=== PATIENT | female | born 1955 | race Caucasian/White ===

== ENCOUNTER 2019-07-09 16:09 | Inpatient (IN) ==
[2019-07-09] MEDS ORDERED: ASPIRIN PO ONE (16:15)
[2019-07-09 16:48] LABS: BLOOD TYPE ARTERIAL; HCO3-(ACT) 26.9 mmoll (20.0-26.0); METHB 1.8 % (0.0-1.5); O2(CT) 20.5 mL/dL (15.0-23.0); PCO2(98.6) 34 mmHg (35-45); PO2(98.6) 55 mmHg (60-100); SAMPLE BLOOD; THB 16.8 g/dL (11.5-17.4); pH(98.6) 7.49 (7.35-7.45)
[2019-07-09] MEDS ORDERED: ALBUTEROL NEB INH ONE (16:48)
[2019-07-09] MEDS ORDERED: PULMICORT INH ONE (16:48)
[2019-07-09] MEDS ORDERED: SOLU-MEDROL IV ONE (16:48)
[2019-07-09] MEDS ORDERED: DUONEB (A & A) INH ONE (16:48)
[2019-07-09 16:54] LABS: ALLEN TEST YES; MODALITY CANNULA
[2019-07-09] MEDS ORDERED: DILAUDID IV ONE (16:55)
[2019-07-09 17:11] LABS: INR 1.93; PTT 40.3 Seconds (22.3-41.8)
[2019-07-09 17:14] LABS: BASO# 0.02 X1000 (0.0-0.2); BASO% 0.1 % (0.0-0.8); EOS# 0.01 X1000 (0.0-0.7); HEMATOCRIT 46.2 % (37.0-47.0); HEMOGLOBIN 15.2 g/dL (12.0-16.0); IMM GRAN% 0.4 % (0.0-0.5); LYMPH# 1.86 X1000 (1.2-3.4); LYMPH% 7.3 % (20.5-51.1); MCHC 32.9 g/dL (33-37); MCV 94.1 FL (81-99); MONO# 1.89 X1000 (0.11-0.59); MONO% 7.4 % (1.7-9.3); MPV 10.6 FL (7.4-10.4); NEUT# 21.75 X1000 (1.4-6.5); NEUT% 84.8 % (42.2-75.2); PLT 454 X1000 (130-400); RBC 4.91 XMIL (4.2-5.4); RDW 13.4 % (11.5-14.5); WBC 25.63 X1000 (4.8-10.8)
--- NOTE | 2019-07-09 17:26 | EKG Report ---
Test Performed on : 07/09/2019 4:18:43 PM Test Reason : sob chf copd Blood Pressure : / mmHG Vent. Rate : 105 BPM Atrial Rate : 105 BPM P-R Int : 208 ms QRS Dur : 086 ms QT Int : 366 ms P-R-T Axes : 064 025 037 degrees QTc Int : 483 ms Sinus tachycardia. with premature supraventricular complexes. Possible Left atrial enlargement ST & T wave abnormality, consider anterior ischemia Abnormal ECG When compared with ECG of 15-JUL-2015 16:14, premature supraventricular complexes. are now present MN interval has decreased Unconfirmed Result
--- NOTE | 2019-07-09 17:28 | Diag Imaging Result Doc PS360 ---
CHEST-2 VIEWS - 07/09/2019 INDICATION: sob chf COMPARISON: 09/30/2016 FINDINGS: Stable sternotomy wires. Heart size and pulmonary vascularity is normal. The lungs are clear. Heart size is normal. No pneumothorax or pleural effusion. IMPRESSION: Negative exam. Electronically signed by Carlos Sabillon 07/09/2019 5:26 PM
[2019-07-09 17:33] LABS: ALBUMIN 4.1 g/dL (3.5-5.0); CALCIUM 10.4 mg/dL (8.8-10.2); CREATININE 1.1 mg/dL (0.5-0.9); POTASSIUM 3.2 mmol/L (3.5-5.1); TOTAL BILIRUBIN 0.3 mg/dL (0.20-1.00)
[2019-07-09] MEDS ORDERED: POTASSIUM CHLORIDE 20% LIQUID PO ONE (17:34)
[2019-07-09] MEDS ORDERED: ZOFRAN IV PRN (18:25)
[2019-07-09] MEDS ORDERED: DUONEB (A & A) INH PRN (18:29)
--- NOTE | 2019-07-09 18:30 | PROVIDER DOCUMENTATION ---
This chart was entered by Nahum Mesa Scribe, acting as scribe for Raudel Hankins MD. HPI-Respiratory General - General Chief Complaint: Shortness of Breath Stated Complaint: difficulting breathing Time Seen by Provider: 07/09/19 16:45 Source: patient Allergies/Adverse Reactions: Patient Allergies Allergy/AdvReac Type Severity Reaction Status Date / Time morphine AdvReac RASH Verified 09/30/16 12:19 Home Medications: Home Medication List Medication Instructions Recorded Confirmed Last Taken Type ATORVAstatin [Lipitor] 20 mg PO DAILY 07/15/15 02/12/16 02/11/16 History Amiodarone [Cordarone] 200 mg PO DAILY 07/15/15 02/12/16 02/11/16 History Amitriptyline [Elavil] 100 mg PO HS 07/15/15 02/12/16 02/11/16 History Amlodipine [Norvasc] 5 mg PO DAILY 07/15/15 02/12/16 02/11/16 History Aspirin 81 mg PO DAILY 07/15/15 02/12/16 02/11/16 History Buspirone [Buspar] 10 mg PO BID 07/15/15 02/12/16 02/11/16 History Esomeprazole [Nexium] 40 mg PO DAILY 07/15/15 02/12/16 1 Day Ago History ~02/11/16 Eszopiclone [Lunesta] 3 mg PO HS 07/15/15 02/12/16 02/11/16 History Hydrocodone/Acetaminophen [[place] 1 each PO Q4HR 07/15/15 02/12/16 02/12/16 History 5-325 Tablet] Metoprolol Tartrate 25 mg PO BID 07/15/15 02/12/16 1 Day Ago History ~02/11/16 Polyethylene Glycol 3350 [Miralax] 17 gm PO DAILY 07/15/15 02/12/16 02/08/16 History Promethazine [Phenergan] 25 mg [place] Q6H PRN PRN 07/15/15 02/12/16 02/09/16 History Albuterol Sulfate [Proair Hfa] 1 puff INH PRN PRN 11/27/15 02/12/16 02/12/16 History Albuterol [Albuterol Neb] 5 mg INH Q4H PRN PRN #60 neb 11/27/15 02/12/16 Unknown Rx Budesonide/Formoterol Fumarate 1 ahfu INH DAILY 11/27/15 02/12/16 02/11/16 History [Symbicort 160-4.5 Mcg Inhaler] Furosemide [Lasix] 20 mg PO DIRECTED 11/27/15 02/12/16 1 Day Ago History ~02/11/16 Pregabalin [Lyrica] 100 mg PO HS 11/27/15 02/12/16 02/11/16 History Warfarin [Coumadin] 2.5 mg PO DIRECTED 11/27/15 02/12/16 02/11/16 History Modafinil [Provigil] 200 mg PO DAILY 02/12/16 02/12/16 02/11/16 History Omeprazole [Prilosec] 40 mg PO 02/12/16 02/12/16 02/11/16 History Clonazepam [Klonopin] 0.5 mg PO Q6H PRN PRN #20 tablet 02/15/16 Unknown Rx Levofloxacin [Levaquin] 500 mg PO DAILY #10 tablet 02/15/16 Unknown Rx Prednisone 20 mg PO DAILY #5 tablet 02/15/16 Unknown Rx Furosemide [Lasix] 40 mg PO DAILY #30 tablet 02/23/16 Unknown Rx - History of Present Illness-Resp Nature of Presenting Problem: Pt is a 63 yof who presents to the ED via EMS with a CC of shortness of breath. Pt states she was at [facility] last night. Pt reports being short of breath for two days. Pt reports having chills and a sinus infection. Pt reports a hx of frequent UTIs, stomach ulcers, HTN, and COPD. Pt reports being a 1/2 ppd smoker. Quality of Pain: reports: other (See HPI) Severity in ED: reports: mild Onset/Duration: reports: 2 days ago Timing: reports: still present Episode Frequency: occasional episodes Current Respiratory Medication Therapy: Initiated see nurses note Associated Symptoms: reports: fever/chills (Chills), nasal congestion, nasal drainage, shortness of breath, wheezing Similar Symptoms Previously?: Yes Recently seen or treated by another doctor?: Yes Review of Systems - Adult - REVIEW OF SYSTEMS - ADULT Constitutional: reports: see HPI, chills Eyes: reports: no symptoms reported Ears, Nose, Mouth & Throat: reports: see HPI, sinus problem Cardiovascular: reports: no symptoms reported Respiratory: reports: see HPI, shortness of breath Gastrointestinal: reports: no symptoms reported Genitourinary: reports: no symptoms reported Musculoskeletal: reports: no symptoms reported Integumentary: reports: no symptoms reported Neurological: reports: no symptoms reported Psychiatric: reports: no symptoms reported Endocrine: reports: no symptoms reported Hematologic/Lymphatic: reports: no symptoms reported Allergic/Immunologic: reports: no symptoms reported All Other Systems: Reviewed and Negative Past History - Adult - PAST MEDICAL HISTORY-ADULT Review of Records: reports: Old Records Reviewed, Nursing Assessment Review, Medications Reviewed, Social history reviewed & non-contributory. Major Childhood Illnesses: reports: denies history Cardiovascular: reports: A-Fib, HTN, heart valve problem (aortic valve replacement), hyperlipidemia Respiratory: reports: COPD, sleep apnea Gastrointestinal: reports: ulcer Obstetrical/Gynecological: reports: denies history Genitourinary: reports: denies history Musculoskeletal: reports: denies history Neurological: reports: CVA Endocrine/Immune: reports: denies history Other Conditions: reports: denies history - PRIOR SURGERIES/PROCEDURES Surgical/Procedure History: reports: cholecystectomy, hysterectomy, other (heart valve replacement) - IMMUNIZATION STATUS Childhood Immunizations: See Nurse Assessment Flu Vaccine: See Nurse Assessment - FAMILY HISTORY Family History: reviewed, not pertinent - SOCIAL HISTORY Smoking: cigarettes, greater than 1 pack/day Substance Use: none/never, denies Alcohol Use Frequency: never Physical Exam-General - CONSTITUTIONAL General Appearance: alert, mild distress - EYES Eyes: PERRL/EOMI, pink conjunctivae - HEAD, EARS, NOSE, MOUTH & THROAT HENMT: moist mucous membranes - NECK Neck: non-tender, full range of motion - RESPIRATORY Respiratory: decreased breath sounds, wheezing - CARDIOVASCULAR Cardiovascular: normal peripheral pulses, regular rate, rhythm - GASTROINTESTINAL (ABDOMEN) Abdominal Exam: non tender, soft - MUSCULOSKELETAL Extremity: normal range of motion, non-tender - SKIN Integumentary: normal color, warm/dry - NEUROLOGIC Neurologic: grossly normal, no motor/sensory deficits - PSYCHIATRIC Psych/Mental Status: normal mood/affect, normal thought content, normal thought process, oriented x 3 Progress - PLAN OF CARE/RESULTS Progress/Plan/Lab Results: Vital Signs - 8 hr 07/09/19 15:52 07/09/19 16:05 07/09/19 17:08 Temperature 98.3 F 98 F Pulse Rate 103 H 107 H 100 H Respiratory Rate 20 22 26 H Blood Pressure 170/105 170/104 O2 Sat by Pulse Oximetry 90 L 91 L 95 07/09/19 17:25 Temperature Pulse Rate 105 H Respiratory Rate 18 Blood Pressure 150/98 O2 Sat by Pulse Oximetry 95 Laboratory Results - last 24 hr 07/09/19 07/09/19 07/09/19 16:28 16:48 16:48 WBC 25.63 H RBC 4.91 Hgb 15.2 Hct 46.2 MCV 94.1 MCH 31.0 MCHC 32.9 L RDW Std Deviation 13.4 Plt Count 454 H MPV 10.6 H Immature Gran % (Auto) 0.4 Neut % (Auto) 84.8 H Lymph % (Auto) 7.3 L [place] % (Auto) 7.4 Eos % (Auto) 0.0 Baso % (Auto) 0.1 Immature Gran # (Auto) 0.10 H Neut # (Auto) 21.75 H Lymph # (Auto) 1.86 [place] # (Auto) 1.89 H Eos # (Auto) 0.01 Baso # (Auto) 0.02 Segmented Neutrophils Not Reportable PT INR PTT (Actin FS) Specimen Type ARTERIAL Sample Site L RADIAL pH 7.49 H pCO2 34 L pO2 55 L HCO3 26.9 H Base Excess 3.0 Oxyhemoglobin 87.0 L* ABG O2 Sat (Calculated) 20.5 ABG O2 Saturation 91.0 L ABG Carboxyhemoglobin 2.60 H ABG Methemoglobin 1.8 H Sarmad Test YES A-a O2 Difference 131.0 Total Hemoglobin 16.8 Lactate 1.00 Liter Flow 3.0 Blood Gas Modality CANNULA FiO2 % 32.0 Sodium 135 L Potassium 3.2 L Chloride 95 L Carbon Dioxide 24 L Anion Gap 16 BUN 30 H Creatinine 1.1 H Estimated GFR/1.73 m2 50 BUN/Creatinine Ratio 27 Glucose 118 H Calculated Osmolality 277 Calcium 10.4 H Total Bilirubin 0.30 AST 13 ALT 6 L Alkaline Phosphatase 155 H Creatine Kinase 42 Troponin T [id number] Pept Total Protein 8.0 Albumin 4.1 Globulin 4.0 Albumin/Globulin Ratio 1.0 Plasma Lactate 07/09/19 07/09/19 07/09/19 16:48 16:48 16:48 WBC RBC Hgb Hct MCV MCH MCHC RDW Std Deviation Plt Count MPV Immature Gran % (Auto) Neut % (Auto) Lymph % (Auto) [place] % (Auto) Eos % (Auto) Baso % (Auto) Immature Gran # (Auto) Neut # (Auto) Lymph # (Auto) [place] # (Auto) Eos # (Auto) Baso # (Auto) Segmented Neutrophils PT 23.0 H INR 1.93 PTT (Actin FS) 40.3 Specimen Type Sample Site pH pCO2 pO2 HCO3 Base Excess Oxyhemoglobin ABG O2 Sat (Calculated) ABG O2 Saturation ABG Carboxyhemoglobin ABG Methemoglobin Sarmad Test A-a O2 Difference Total Hemoglobin Lactate Liter Flow Blood Gas Modality FiO2 % Sodium Potassium Chloride Carbon Dioxide Anion Gap BUN Creatinine Estimated GFR/1.73 m2 BUN/Creatinine Ratio Glucose Calculated Osmolality Calcium Total Bilirubin AST ALT Alkaline Phosphatase Creatine Kinase Troponin T < 0.010 [id number] Pept 1442 H Total Protein Albumin Globulin Albumin/Globulin Ratio Plasma Lactate 07/09/19 16:48 WBC RBC Hgb Hct MCV MCH MCHC RDW Std Deviation Plt Count MPV Immature Gran % (Auto) Neut % (Auto) Lymph % (Auto) [place] % (Auto) Eos % (Auto) Baso % (Auto) Immature Gran # (Auto) Neut # (Auto) Lymph # (Auto) [place] # (Auto) Eos # (Auto) Baso # (Auto) Segmented Neutrophils PT INR PTT (Actin FS) Specimen Type Sample Site pH pCO2 pO2 HCO3 Base Excess Oxyhemoglobin ABG O2 Sat (Calculated) ABG O2 Saturation ABG Carboxyhemoglobin ABG Methemoglobin Sarmad Test A-a O2 Difference Total Hemoglobin Lactate Liter Flow Blood Gas Modality FiO2 % Sodium Potassium Chloride Carbon Dioxide Anion Gap BUN Creatinine Estimated GFR/1.73 m2 BUN/Creatinine Ratio Glucose Calculated Osmolality Calcium Total Bilirubin AST ALT Alkaline Phosphatase Creatine Kinase Troponin T Qby-N-Ippjtifloba Pept Total Protein Albumin Globulin Albumin/Globulin Ratio Plasma Lactate 1.0 Orders Category Date Time Status Cardiac Monitoring DIRECTED Care 07/09/19 16:15 Active Notify MD of + Sepsis Screen NOW Care 07/09/19 17:56 Active Oxygen Therapy- ED Nursing DIRECTED Care 07/09/19 16:15 Active Saline Loc NOW Care 07/09/19 16:15 Active CHEST-2 VIEWS [RAD] Stat Exams 07/09/19 16:15 Completed ABG [RESP] Routine Lab 07/09/19 16:28 Completed BLOOD CULTURE [BLDCUL] Stat Lab 07/09/19 18:12 Ordered CBC WITH ELECTRONIC DIFF [HEME] Stat Lab 07/09/19 16:48 Completed CK PROFILE [SP CHEM] Stat Lab 07/09/19 16:48 Completed COMPREHENSIVE METABOLIC PANEL [CHEM] Stat Lab 07/09/19 16:48 Completed LACTATE, PLASMA [CHEM] Lab 07/09/19 21:00 Uncollected LACTATE, PLASMA [CHEM] Lab 07/10/19 00:00 Uncollected LACTATE, PLASMA [CHEM] Stat Lab 07/09/19 16:48 Completed PRO B-NATRIURETIC PEPTIDE Stat Lab 07/09/19 16:48 Completed PROTIME WITH INR [COAG] Stat Lab 07/09/19 16:48 Completed PT [PROTIME WITH INR] [COAG] DAILY Lab 07/10/19 06:00 Ordered PT [PROTIME WITH INR] [COAG] DAILY Lab 07/11/19 06:00 Ordered PT [PROTIME WITH INR] [COAG] DAILY Lab 07/12/19 06:00 Ordered PTT [COAG] Stat Lab 07/09/19 16:48 Completed TROPONIN T Stat Lab 07/09/19 16:[address] W/POSS RFLX CULT [URINALYSIS] Stat Lab 07/09/19 17:34 Uncollected Albuterol 2.5MG/Ipratrop 0.5MG [Duoneb (A & A)] Med 07/09/19 16:48 Discontinued 3 ml INH NOW ONE Albuterol [Albuterol Neb] Med 07/09/19 16:48 Discontinued 5 mg INH NOW ONE Aspirin Med 07/09/19 16:15 Discontinued 325 mg PO NOW ONE Budesonide [Pulmicort] Med 07/09/19 16:48 Discontinued 0.5 mg INH NOW ONE Hydromorphone [Dilaudid] Med 07/09/19 16:55 Discontinued 0.5 mg IV NOW ONE Methylprednisolone Sod Succ [Solu-Medrol] Med 07/09/19 16:48 Discontinued 125 mg IV NOW ONE Potassium Chloride 20% Liquid Med 07/09/19 17:34 Discontinued 40 meq PO NOW ONE Warfarin [Coumadin] Med 07/09/19 21:00 Once 8 mg PO HS ONE Aerosol Treatments Routine Oth 07/09/19 16:49 Completed Aerosol Treatments Stat Oth 07/09/19 16:49 Completed CP/SOB/Palp >45 yrs of Age Stat Oth 07/09/19 16:15 Ordered EKG [EKG] Stat Ther 07/09/19 16:15 Draft Result Diagrams: 07/09/19 16:48 07/09/19 16:48 Departure - Departure Date of Disposition Decision: 07/09/19 Time of Disposition Decision: 18:16 DIAGNOSIS: COPD with exacerbation, Leukocytosis Disposition: ADMITTED INPATIENT 09 Certified Medical Emergency: Emergent Condition: Stable Referrals and Follow-Ups: None,PCP [Primary Care Provider] - - Critical Care Note This patient required my direct & personal management of CC.: No Attestation - Physician/ KEIRA Attestation Patient care was provided by Advanced Practice Provider:: No The physician spent face to face time with patient:: Yes Advanced Practice Provider documentation review:: Supervising physician onsite and consulted in the evaluation and care of this patient. The physician did have a face to face encounter with the patient. This chart was documented by the indicated scribe, (Nahum Mesa, Scribe) and accurately reflects the services I performed and decisions made by me, Raudel Hankins MD, as attested by the provider's signature.
[2019-07-09] MEDS ORDERED: SODIUM CHLORIDE 0.9% INJ SCH (18:45)
[2019-07-09 18:52] LABS: BILIRUBIN URINE NEGATIVE (NEGATIVE); BLOOD URINE NEGATIVE (NEGATIVE); CLARITY CLEAR (CLEAR); COLOR YELLOW; GLUCOSE URINE NEGATIVE (NEGATIVE); KETONE URINE TRACE mg/dL (NEGATIVE); LEUKOCYTES URINE 1+ (NEGATIVE); NITRITE URINE POSITIVE (NEGATIVE); PH URINE 6.5; PROTEIN URINE 2+(100 mg/dL) mg/dL (NEGATIVE); SP GRAVITY URINE 1.015; UROBILINOGEN URINE NORMAL
[2019-07-09 19:08] LABS: URINE SOURCE CATH
[2019-07-09 19:09] LABS: URINE BACTERIA 4+ /HFP; URINE CAST NONE SEEN /LPF; URINE CRYSTAL NONE SEEN /HPF; URINE EPITHELIAL CELLS >10 /HPF (<10); URINE RBC <10 /HPF (<10); URINE WBC TNTC /HPF (<10); URINE YEAST NONE SEEN /HPF
--- NOTE | 2019-07-09 19:25 | HISTORY AND PHYSICAL ---
CHIEF COMPLAINT: Shortness of breath and difficulty breathing. HISTORY OF PRESENT ILLNESS: This is a 63-year-old female who presented to the emergency room with complaint of having shortness of breath. She was seen at [facility] last night with the same complaint. She states that she has been getting more and more shortness of breath for the previous 2 days. She also reports chills, but no fever. No other complaints are reported. PAST MEDICAL HISTORY: 1. Chronic atrial fibrillation with mechanical aortic valve replacement. 2. History of cerebrovascular accident. 3. Dyslipidemia. 4. Hypertension. 5. COPD with hypoxemia and chronic oxygen dependence. 6. Gastroesophageal reflux disease. 7. Insomnia. 8. Chronic pain secondary to degenerative disk disease and osteoarthritis. PAST SURGICAL HISTORY: 1. Aortic valve replacement. 2. Cholecystectomy. 3. Hysterectomy. SOCIAL HISTORY: The patient has been smoking 1 pack of cigarettes per day all her life. She continues to smoke tobacco despite advanced COPD. She denies having any alcohol or drug use. FAMILY HISTORY: Positive for coronary artery disease. ALLERGIES: She reports she is allergic to morphine sulfate. CURRENT HOME MEDICATIONS: 1. Albuterol and ipratropium nebulization treatments every 4 hours as needed. 2. Amiodarone 200 mg orally once daily. 3. Elavil 100 mg orally once daily at bedtime. 4. Amlodipine 5 mg orally once daily. 5. Aspirin 81 mg orally once daily. 6. Atorvastatin 20 mg orally once daily at bedtime. 7. Symbicort inhaler 160/4.5 one inhalation twice daily. 8. Buspirone 10 mg orally twice daily. 9. Clonazepam 0.5 mg orally every 6 hours as needed for anxiety. 10. Nexium 40 mg orally once daily in the morning. 11. Lunesta 3 mg orally once daily at bedtime. 12. Furosemide 40 mg orally once daily as directed for leg swelling. 13. [place] 5 mg orally every 4 hours as needed for chronic pain. 14. Metoprolol 25 mg orally twice daily. 15. Provigil 200 mg orally once daily in the morning. 16. MiraLAX 17 g orally once daily. 17. Prednisone 20 mg orally once daily. 18. Lyrica 100 mg orally once daily at bedtime. 19. Phenergan 25 mg OK q. 6 hours as needed for nausea and vomiting. 20. Warfarin 2.5 mg orally once daily at bedtime as per INR. REVIEW OF SYSTEMS: A full 14-point review of systems was obtained that was pretty much the same as already has been explained in the HPI. She also has been having some abdominal pain. DIAGNOSTIC DATA: CBC shows WBC count of 25.63 with 84.8% neutrophils and 7.3% lymphocytes, rest of the CBC is nondiagnostic. INR is noted to be 1.93. Blood gases showed a pH of 7.49, pCO2 of 34, and pO2 of 55 on 3 L of oxygen by nasal cannula. Comprehensive metabolic panel showed sodium level of 135, potassium 3.2, CO2 of 24, chloride 95, BUN 30, creatinine 1.1, and glucose levels of 118. Rest of the chemistry is nondiagnostic. Troponin levels were found to be negative. The proBNP was elevated at 1442. Plasma lactate level was found to be normal at 1.0. The ECG done at the emergency room showed sinus tachycardia with 2 ventricular rate of 105 beats per minute. There were some nonspecific ST-T wave abnormalities present. Chest x-ray obtained at the emergency room was negative for any acute pulmonary disease. PHYSICAL EXAMINATION: VITAL SIGNS: Temperature 98 degrees Fahrenheit, pulse 105 per minute, respiratory rate 18 per minute, blood pressure 150/98, pulse ox is 95 percent on 2 liters of oxygen by nasal cannula. GENERAL: The patient is alert and oriented x3. She does not appear to be in any acute distress. CARDIOVASCULAR SYSTEM: First and second heart sounds are audible with irregular tachycardia noted. RESPIRATORY SYSTEM: Bilateral lung air entry is moderately decreased with few rhonchi present on expiration. GASTROINTESTINAL SYSTEM: Abdomen is soft and slightly tender on deep palpation all over. No rigidity or guarding are noted. Bowel sounds are somewhat hyperactive. NEUROLOGIC: No focal deficits are present. MUSCULOSKELETAL SYSTEM: No deformities are present. INTEGUMENTARY: Skin is warm and dry without any rash. GENITOURINARY: Deferred. IMPRESSION: 1. Acute respiratory failure secondary to acute chronic obstructive pulmonary disease exacerbation with hypoxemia and chronic oxygen dependence. 2. Leukocytosis likely secondary to chronic prednisone therapy. 3. Abdominal pain which could be a source of infection because of leukocytosis although that appears to be secondary to chronic prednisone therapy. She is at risk of having infection and sepsis because of prednisone therapy, however. 4. Hypokalemia and mild hyponatremia. 5. History of atrial fibrillation with aortic valve replacement and chronic anticoagulation with warfarin. Her INR is subtherapeutic at this time. 6. History of hypertension and dyslipidemia. PLAN: She is going to be admitted to the Med-Surg floor and we are going to treat her with bronchodilators along with broad-spectrum antibiotics. At this time we will start her on Zosyn intravenously to cover possible intra-abdominal pathogens. I am also going to obtain CT scan of the abdomen and pelvis to further evaluate her abdominal pain. Would give her a loading dose of warfarin tonight and monitor her INR. Would also continue with the rest of her routine home medications, replenish electrolytes and provide supportive care. Further recommendations to be given as per hospital course. cc: Marvin Morgan MD MTDD
[2019-07-09] MEDS: DUONEB (A & A) INH SCH ×2 (19:51→23:26)
[2019-07-09] MEDS ORDERED: COUMADIN PO ONE (21:00)
[2019-07-09] MEDS: PROTONIX IV SCH (23:47)
[2019-07-09] MEDS: NS 1,000 ML IV SCH (23:47)
[2019-07-09] MEDS: SOLU-MEDROL IV SCH (23:47)
[2019-07-09] MEDS: NORCO-7.5 PO PRN (23:48)
[2019-07-09] MEDS: CARAFATE PO SCH (23:48)
[2019-07-10] MEDS: DUONEB (A & A) INH SCH ×6 (03:11→23:00)
[2019-07-10 03:13] LABS: BASO# 0.01 X1000 (0.0-0.2); HEMATOCRIT 41.8 % (37.0-47.0); HEMOGLOBIN 13.7 g/dL (12.0-16.0); IMM GRAN# 0.08 X1000 (0.0-0.04); IMM GRAN% 0.3 % (0.0-0.5); LYMPH# 0.69 X1000 (1.2-3.4); LYMPH% 2.7 % (20.5-51.1); MCH 31.1 PG (27-31); MCHC 32.8 g/dL (33-37); MCV 94.8 FL (81-99); MONO# 0.77 X1000 (0.11-0.59); MONO% 3.1 % (1.7-9.3); MPV 10.2 FL (7.4-10.4); NEUT# 23.62 X1000 (1.4-6.5); NEUT% 93.9 % (42.2-75.2); PLT 430 X1000 (130-400); RBC 4.41 XMIL (4.2-5.4); RDW 13.2 % (11.5-14.5); WBC 25.17 X1000 (4.8-10.8)
[2019-07-10 03:16] LABS: INR 2.1; PROTIME 24.6 Seconds (11.0-16.0)
[2019-07-10 03:18] LABS: ALBUMIN 3.6 g/dL (3.5-5.0); CALCIUM 9.7 mg/dL (8.8-10.2); CREATININE 1.1 mg/dL (0.5-0.9); MAGNESIUM 1.6 mg/dL (1.5-2.7); POTASSIUM 3.4 mmol/L (3.5-5.1); TOTAL BILIRUBIN 0.2 mg/dL (0.20-1.00); TOTAL PROTEIN 6.8 g/dL (6.3-8.3)
[2019-07-10] MEDS: SOLU-MEDROL IV SCH ×3 (03:19→17:49)
[2019-07-10] MEDS: NS 1,000 ML IV SCH ×2 (03:19→10:38)
[2019-07-10 03:37] LABS: SEGS 94 % (42-75)
[2019-07-10 03:38] LABS: BANDS 3 % (0-1); LARGE PLATELETS 1+; LYMPHS 2 % (21-51); MONO 1 % (1-9); POIKILOCYTOSIS 2+; STOMATOCYTES 1+
[2019-07-10] MEDS: CARAFATE PO SCH ×5 (05:57→20:43)
[2019-07-10] MEDS: SYNTHROID PO SCH ×2 (05:57→06:31)
[2019-07-10] MEDS: NORCO-7.5 PO PRN ×3 (05:57→17:48)
[2019-07-10] MEDS ORDERED: LIPITOR PO SCH (09:00)
[2019-07-10] MEDS ORDERED: PRINZIDE 20/12.5MG PO SCH (09:00)
[2019-07-10] MEDS ORDERED: CYMBALTA PO SCH (09:00)
--- NOTE | 2019-07-10 09:04 | Diag Imaging Result Doc PS360 ---
EXAM: CT ABD/PELVIS W/PO AND IV CON - 07/09/2019 HISTORY: Abdominal Pain; Leukocytosis. TECHNIQUE: CT abdomen/pelvis with oral and intravenous contrast COMPARISON: None. FINDINGS: The visualized lung bases appear clear except for mild subsegmental atelectasis or scarring. There are no substantial abnormalities of the liver, spleen, or pancreas identified. There is nonspecific mild fullness of the left adrenal gland. The gallbladder surgically absent. There is mild right renal cortical scarring. There are small left renal cysts. The bilateral kidneys otherwise enhance homogeneously. There is no hydronephrosis. There are no substantially enlarged lymph nodes identified. There are atherosclerotic calcifications noted. There are post kyphoplasty changes noted in the lumbar spine. There is no evidence of bowel obstruction. The cecum extends to the midline lower abdomen. What appears to represent the appendix is unremarkable. There is no substantial bowel wall thickening identified. There is a moderate amount retained fecal debris in the right colon. No free air, free fluid, or abscess identified. There are postsurgical changes of partial hysterectomy. There is no abnormal pelvic mass or fluid collection identified. IMPRESSION: Moderate amount retained fecal debris in the right colon which may relate to some constipation. Nonspecific mild fullness of left adrenal gland. Mild cortical scarring in right kidney. No other evidence of acute disease in the abdomen or pelvis. The on-call radiologist provided preliminary results at 11:45 PM on 07/09/2019. This exam was performed using automated exposure control, adjustment of mA or kV according to patient size, and/or use of iterative reconstruction technique. Electronically signed by Raúl Conrad 07/10/2019 9:02 AM
[2019-07-10] MEDS ORDERED: KLOR-CON PO ONE (09:22)
[2019-07-10] MEDS: PRINIVIL PO SCH (09:50)
[2019-07-10] MEDS: ZYRTEC PO SCH (09:50)
[2019-07-10] MEDS: COREG PO SCH ×2 (09:50→20:44)
[2019-07-10] MEDS: HYDROCHLOROTHIAZIDE PO SCH (09:50)
[2019-07-10] MEDS: ZOSYN 3.375 GM in NS 50 ML IV SCH ×3 (10:37→22:20)
[2019-07-10] MEDS: REQUIP PO SCH ×2 (10:42→20:43)
--- NOTE | 2019-07-10 12:35 | PROGRESS NOTE ---
DATE: 07/10/2019 SUBJECTIVE: The patient denies having any acute complaints, except for some mild abdominal discomfort. She states that her breathing has improved. OBJECTIVE: Vital Signs: Temperature 97.7 degrees Fahrenheit, pulse rate 72 per minute, respiratory rate 19 per minute, blood pressure 178/93. Earlier, her blood pressure was 128/67, however. Pulse ox is 94% on 2 L of oxygen via nasal cannula. General: The patient is alert and oriented x3. She does not appear to be in any acute distress. Cardiovascular: First and second heart sounds are audible without any murmurs or gallops. Respiratory: Bilateral lung air entry is moderately decreased with a few occasional expiratory rhonchi present on auscultation. Gastrointestinal: Abdomen is nondistended. It is soft and minimally tender on deep palpation all over. Normal bowel sounds are present. DIAGNOSTIC DATA: CBC shows WBC count of 25.17 with 93.9% neutrophils. Rest of the CBC is nondiagnostic. Comprehensive metabolic panel obtained this morning showed sodium levels of 135, potassium 3.4, BUN 31, creatinine 1.1, and glucose level is 253. Rest of the comprehensive metabolic panel is nondiagnostic. INR was found to be slightly subtherapeutic at 2.1. Urinalysis showed too numerous to count WBCs, and urine culture has been reportedly having gram-negative rods. Further sensitivity report is pending at the time of this dictation. CT scan of the abdomen and pelvis was obtained last night that showed a moderate amount of retained fecal debris in the right colon, but no other significant finding. IMPRESSION: 1. Acute respiratory failure secondary to chronic obstructive pulmonary disease exacerbation. 2. Leukocytosis with urinary tract infection. 3. Abdominal pain that has now improved. 4. Hypokalemia. 5. Chronic warfarin therapy for mechanical aortic valve replacement. PLAN: The patient will continue to receive IV systemic steroids along with bronchodilators. I have placed her on Zosyn intravenously that should cover any intra-abdominal infections as well as urinary tract infection. She will be given warfarin 7.5 mg this evening to address her subtherapeutic INR. Her INR will be closely monitor, and we will adjust her warfarin dosage appropriately. We will continue to give her IV fluids, and provide her supportive care. This will include potassium replacement as well. Further recommendations will be given as per hospital course. cc: Marvin Morgan MD
[2019-07-10] MEDS: PROTONIX IV SCH (17:49)
[2019-07-10] MEDS: CYMBALTA PO SCH (20:42)
[2019-07-10] MEDS: LIPITOR PO SCH (20:42)
[2019-07-10] MEDS ORDERED: REQUIP PO SCH (21:00)
[2019-07-10] MEDS ORDERED: COUMADIN PO ONE (21:00)
[2019-07-10] MEDS: AMBIEN PO PRN (22:20)
[2019-07-11] MEDS: DUONEB (A & A) INH SCH ×6 (03:14→22:53)
[2019-07-11] MEDS: ZOSYN 3.375 GM in NS 50 ML IV SCH ×5 (03:17→22:07)
[2019-07-11] MEDS: SOLU-MEDROL IV SCH ×3 (03:17→18:06)
[2019-07-11] MEDS: NS 1,000 ML IV SCH ×4 (03:18→22:08)
[2019-07-11 06:02] LABS: BLOOD TYPE ARTERIAL; SAMPLE BLOOD
[2019-07-11 06:03] LABS: BE 1.6 mmoll (-3.0-3.0); METHB 1.6 % (0.0-1.5); O2(CT) 17.8 mL/dL (15.0-23.0); O2HB 92.3 % (95.0-99.0); PCO2(98.6) 39 mmHg (35-45); PO2(98.6) 72 mmHg (60-100); SAO2 94.5 % (95.0-100.0); THB 13.7 g/dL (11.5-17.4); pH(98.6) 7.43 (7.35-7.45)
[2019-07-11 06:04] LABS: ALLEN TEST YES; MODALITY CANNULA
[2019-07-11] MEDS: REQUIP PO SCH ×3 (06:07→20:15)
[2019-07-11] MEDS: SYNTHROID PO SCH (06:08)
[2019-07-11] MEDS: NORCO-7.5 PO PRN ×3 (06:08→20:15)
[2019-07-11] MEDS: CARAFATE PO SCH ×5 (06:08→20:16)
[2019-07-11 06:32] LABS: BASO# 0.01 X1000 (0.0-0.2); HEMATOCRIT 40.9 % (37.0-47.0); HEMOGLOBIN 12.8 g/dL (12.0-16.0); IMM GRAN# 0.17 X1000 (0.0-0.04); IMM GRAN% 0.6 % (0.0-0.5); LYMPH# 0.93 X1000 (1.2-3.4); LYMPH% 3.3 % (20.5-51.1); MCH 30.5 PG (27-31); MCHC 31.3 g/dL (33-37); MCV 97.6 FL (81-99); MONO# 0.88 X1000 (0.11-0.59); MONO% 3.2 % (1.7-9.3); MPV 10.3 FL (7.4-10.4); NEUT# 25.92 X1000 (1.4-6.5); NEUT% 92.9 % (42.2-75.2); PLT 439 X1000 (130-400); RBC 4.19 XMIL (4.2-5.4); RDW 13.6 % (11.5-14.5); WBC 27.91 X1000 (4.8-10.8)
[2019-07-11 06:43] LABS: INR 3.15; PROTIME 33.8 Seconds (11.0-16.0)
[2019-07-11 06:47] LABS: AGAP 11; BUN 25 mg/dL (8-22); CALCIUM 9.5 mg/dL (8.8-10.2); CHLORIDE 105 mmol/L (98-107); COSMO 287; CREATININE 0.8 mg/dL (0.5-0.9); ESTIMATED GFR > 60; GLUCOSE 151 mg/dL (70-104); POTASSIUM 3.9 mmol/L (3.5-5.1); SODIUM 140 mmol/L (136-145); TCO2 24 mmol/L (25-35)
[2019-07-11] MEDS ORDERED: NORCO-7.5 PO PRN (07:00)
[2019-07-11 08:36] LABS: LYMPHS 10 % (21-51); MONO 3 % (1-9); SEGS 87 % (42-75)
[2019-07-11] MEDS: HYDROCHLOROTHIAZIDE PO SCH (10:09)
[2019-07-11] MEDS: COREG PO SCH ×2 (10:09→20:16)
[2019-07-11] MEDS: PRINIVIL PO SCH (10:09)
[2019-07-11] MEDS: ZYRTEC PO SCH (10:10)
[2019-07-11] MEDS: ROBAXIN PO PRN ×2 (10:41→18:35)
[2019-07-11] MEDS: PRILOSEC PO SCH (10:41)
[2019-07-11] MEDS: PROTONIX IV SCH (18:06)
--- NOTE | 2019-07-11 19:17 | PROGRESS NOTE ---
DATE: 07/11/2019 SUBJECTIVE: Patient states she is feeling a lot better. Still having some cough and congestion. Still having shortness of breath. Denies any fevers, chills. OBJECTIVE: Vital signs: Temperature 97.4 degrees, pulse 75, respiratory rate 18, BP 128/70 to 181/90. General: Patient is awake currently she is in mild respiratory distress which is an improvement from her previous exams. HEENT: Normocephalic. Neck: Supple. CV: Regular rate. Chest: Decreased but equal breath sounds. Positive mild wheezing. Poor but equal air movement bilaterally. Abdomen: Soft, obese, nondistended. Extremities: Moves all extremities. ASSESSMENT: 1. Acute respiratory failure secondary to chronic obstructive pulmonary disease exacerbation. 2. Leukocytosis. 3. Abdominal pain. 4. Hypokalemia. PLAN: Overall, the patient has improved. We will continue her in the hospital. Continue Solu- Medrol today at 40 IV q.8h. Hopefully, she can continue to improve and can be weaned down over the next day or two. cc: Saul Bragg MD
[2019-07-11] MEDS: DESYREL PO SCH (20:15)
[2019-07-11] MEDS: AMBIEN PO PRN (20:15)
[2019-07-11] MEDS: CYMBALTA PO SCH (20:16)
[2019-07-11] MEDS: LIPITOR PO SCH (20:16)
[2019-07-11] MEDS ORDERED: COUMADIN PO SCH (21:00)
[2019-07-12] MEDS: DUONEB (A & A) INH SCH ×6 (03:13→22:41)
[2019-07-12] MEDS: ZOSYN 3.375 GM in NS 50 ML IV SCH ×4 (03:45→22:29)
[2019-07-12] MEDS: SOLU-MEDROL IV SCH ×3 (03:45→22:29)
[2019-07-12] MEDS: SYNTHROID PO SCH ×2 (05:48→06:02)
[2019-07-12] MEDS: PRILOSEC PO SCH ×2 (05:48→06:02)
[2019-07-12] MEDS: NORCO-7.5 PO PRN ×2 (05:48→17:41)
[2019-07-12 06:32] LABS: INR 4.1
[2019-07-12 07:18] LABS: PROTIME 41.6 Seconds (11.0-16.0)
[2019-07-12] MEDS: COREG PO SCH ×2 (08:08→20:26)
[2019-07-12] MEDS: CARAFATE PO SCH ×5 (08:08→20:26)
[2019-07-12] MEDS: HYDROCHLOROTHIAZIDE PO SCH (08:08)
[2019-07-12] MEDS: ZYRTEC PO SCH (08:08)
[2019-07-12] MEDS: PRINIVIL PO SCH (08:08)
[2019-07-12] MEDS: REQUIP PO SCH ×2 (08:08→20:25)
[2019-07-12] MEDS: NS 1,000 ML IV SCH ×2 (09:47→17:01)
[2019-07-12 13:24] LABS: BASO# 0.02 X1000 (0.0-0.2); BASO% 0.1 % (0.0-0.8); EOS# 0.01 X1000 (0.0-0.7); EOS% 0.1 % (0.0-10.0); HEMATOCRIT 38.1 % (37.0-47.0); HEMOGLOBIN 11.8 g/dL (12.0-16.0); IMM GRAN% 1.9 % (0.0-0.5); LYMPH# 0.74 X1000 (1.2-3.4); LYMPH% 4.6 % (20.5-51.1); MONO# 0.85 X1000 (0.11-0.59); MONO% 5.3 % (1.7-9.3); MPV 9.7 FL (7.4-10.4); NEUT# 14.21 X1000 (1.4-6.5); PLT 368 X1000 (130-400); RBC 3.81 XMIL (4.2-5.4); RDW 13.3 % (11.5-14.5); WBC 16.13 X1000 (4.8-10.8)
[2019-07-12 13:31] LABS: AGAP 8; BUN 26 mg/dL (8-22); CALCIUM 9.1 mg/dL (8.8-10.2); CHLORIDE 104 mmol/L (98-107); COSMO 282; CREATININE 0.7 mg/dL (0.5-0.9); ESTIMATED GFR > 60; GLUCOSE 124 mg/dL (70-104); SODIUM 138 mmol/L (136-145); TCO2 26 mmol/L (25-35)
--- NOTE | 2019-07-12 14:06 | PROGRESS NOTE ---
DATE: 07/12/2019 SUBJECTIVE: Patient reports breathing better. Denies any fever, chills, at the time my examination she is not requiring any oxygen supplementation. OBJECTIVE: Vitals: Temperature. 97.4, heart rate 61, respiratory 18, blood pressure 165/78, O2 saturation 96% 2 L nasal cannula. General: This is a chronically ill-appearing 63-year-old female lying in bed in no acute distress. Cardiovascular: S1, S2 heard, no murmurs, gallops or rubs. Regular rate and rhythm. Respiratory: Minimal wheezing noted in both pulmonary bases patient not using any accessory muscles or having work of breathing. Abdomen: Soft, nontender to palpation. Bowel sounds present, no organomegaly. Extremities: No clubbing, cyanosis, or edema. Peripheral pulses present in both legs. Neurologic: Patient alert, oriented x3, move 4 extremities. LABORATORY DATA: White cell count 16.1, hemoglobin 11.3, hematocrit 38.1, platelets 368,000. BMP still pending. ASSESSMENT AND PLAN: 1. Acute respiratory failure secondary to chronic obstructive pulmonary disease exacerbation. Clinically patient is feeling better not requiring any oxygen supplementation the time my examination, she feels breathing better although she reports feeling weak. In that regard I am planning to consult Physical Therapy and Occupational Therapy and see she is a candidate for rehab or not. 2. Leukocytosis most likely related to intravenous steroid use. We have decreased the doses of Solu-Medrol and also white cell count getting better. At this point will continue with same management. 3. Abdominal pain improved. 4. Hypokalemia, the potassium from yesterday was normal. At this point we are still waiting for results of the BMP. 5. Disposition. I think if this patient continues to improve, white cell count is better and PT considers that she can go to home health patient can be discharged. Otherwise will pursue to look for rehab facility. cc: Anthony Kim MD
[2019-07-12 14:17] LABS: LYMPHS 6 % (21-51); MONO 5 % (1-9); SEGS 89 % (42-75)
[2019-07-12] MEDS: ROBAXIN PO PRN (14:52)
[2019-07-12] MEDS ORDERED: TORADOL IV ONE (17:10)
[2019-07-12] MEDS: DESYREL PO SCH (20:27)
[2019-07-12] MEDS: CYMBALTA PO SCH (20:27)
[2019-07-12] MEDS: LIPITOR PO SCH (20:29)
[2019-07-13] MEDS: NORCO-7.5 PO PRN ×3 (00:30→11:46)
[2019-07-13] MEDS: NS 1,000 ML IV SCH (02:13)
[2019-07-13] MEDS: DUONEB (A & A) INH SCH ×3 (02:58→11:15)
[2019-07-13] MEDS: ZOSYN 3.375 GM in NS 50 ML IV SCH ×2 (04:47→09:44)
[2019-07-13] MEDS: SYNTHROID PO SCH ×2 (04:48→06:00)
[2019-07-13 05:47] VITALS: BP 175/74
[2019-07-13 05:54] LABS: BASO# 0.02 X1000 (0.0-0.2); BASO% 0.2 % (0.0-0.8); EOS# 0.01 X1000 (0.0-0.7); EOS% 0.1 % (0.0-10.0); HEMATOCRIT 39.2 % (37.0-47.0); IMM GRAN# 0.59 X1000 (0.0-0.04); IMM GRAN% 4.5 % (0.0-0.5); LYMPH# 0.94 X1000 (1.2-3.4); LYMPH% 7.1 % (20.5-51.1); MCH 30.3 PG (27-31); MCHC 30.6 g/dL (33-37); MONO# 0.72 X1000 (0.11-0.59); MONO% 5.5 % (1.7-9.3); MPV 9.8 FL (7.4-10.4); NEUT# 10.92 X1000 (1.4-6.5); NEUT% 82.6 % (42.2-75.2); PLT 405 X1000 (130-400); RBC 3.96 XMIL (4.2-5.4); RDW 13.1 % (11.5-14.5)
[2019-07-13 06:07] LABS: INR 3.43; PROTIME 36.2 Seconds (11.0-16.0)
[2019-07-13] MEDS: PRILOSEC PO SCH (06:11)
[2019-07-13 06:12] LABS: AGAP 7; BUN 25 mg/dL (8-22); CHLORIDE 103 mmol/L (98-107); COSMO 281; CREATININE 0.8 mg/dL (0.5-0.9); ESTIMATED GFR > 60; GLUCOSE 145 mg/dL (70-104); POTASSIUM 3.9 mmol/L (3.5-5.1); SODIUM 137 mmol/L (136-145); TCO2 27 mmol/L (25-35)
[2019-07-13] MEDS: COREG PO SCH (09:34)
[2019-07-13] MEDS: REQUIP PO SCH (09:34)
[2019-07-13] MEDS: ZYRTEC PO SCH (09:34)
[2019-07-13] MEDS: PRINIVIL PO SCH (09:34)
[2019-07-13] MEDS: CARAFATE PO SCH (09:34)
[2019-07-13] MEDS: HYDROCHLOROTHIAZIDE PO SCH (09:34)
[2019-07-13] MEDS: SOLU-MEDROL IV SCH (09:44)
[2019-07-13] MEDS: ROBAXIN PO PRN (09:44)
--- NOTE | 2019-07-14 05:42 | DISCHARGE SUMMARY ---
ADMISSION DATE: 07/09/2019 DISCHARGE DATE: 07/13/2019 ADMISSION DIAGNOSES: 1. Acute respiratory failure secondary to acute on chronic obstructive pulmonary disease exacerbation with hypoxemia and chronic oxygen dependence. 2. Leukocytosis likely secondary to chronic prednisone therapy. 3. Abdominal pain which could be a source of infection causing leukocytosis although that appears to be secondary to chronic prednisone therapy, and still at risk for infection. 4. Hypokalemia and mild hyponatremia. 5. History of atrial fibrillation, aortic valve replacement, and chronic anticoagulation with Coumadin. 6. Hypertension. 7. Dyslipidemia. 8. Acute respiratory failure secondary to chronic obstructive pulmonary disease exacerbation. 9. Leukocytosis related to steroid use. 10. Abdominal pain improved. 11. Hypokalemia resolved. 12. E. Coli positive urinary tract infection. HOSPITAL COURSE: Ms. Savannah Suarez is a 63-year-old female with a medical history of chronic atrial fibrillation with mechanical aortic valve replacement on Coumadin therapy. She presented with complaints of shortness of breath and difficulty bleeding. She was diagnosed with COPD exacerbation, hypoxia, and acute on chronic hypoxemic respiratory failure. She was given antibiotic therapy, nebulizers, and steroids. INR was followed and even had to hold the dose of her Coumadin one time because she became supratherapeutic. She is stable. She is going to go home with home health and antibiotic coverage. DISCHARGE VITAL SIGNS: Temperature 98.7, heart rate 57, respiratory rate 17, blood pressure 175/74, O2 saturation 92% on 2 L nasal cannula. I think she went home with room air. DISCHARGE LAB DATA: White blood cells 13,000, hemoglobin 12, hematocrit 39, and platelet count 405,000. INR is 3.43 and that is after holding the Coumadin yesterday. Sodium 137, potassium 3.9, BUN 25, creatinine 0.8, glucose 145, and calcium 9.0. Micro urinary tract infection E. Coli positive. ESBL negative. Resistant to ampicillin, sulbactam, Levaquin and Bactrim. IMAGING: Chest x-ray negative exam. Abdominal and pelvic CT. Constipation. EKG sinus tachycardia and rate 105. QTc is 483. DISCHARGE MEDICATIONS: 1. Cefdinir 300 mg p.o. twice a day for 7 days. 2. Medrol Dosepak. 3. [place] 10s 1 tablet p.o. every 4 hours p.r.n. 4. Coumadin 4 mg p.o. nightly. 5. Duloxetine 60 mg p.o. nightly. 6. Lipitor 20 mg p.o. nightly. 7. Trazodone 150 mg p.o. nightly. 8. Carvedilol 6.25 mg p.o. twice daily. 9. Lisinopril hydrochlorothiazide 1 tablet p.o. daily. 10. Meloxicam 7.5 mg p.o. daily. 11. Methocarbamol 750 mg p.o. t.i.d. 12. Omeprazole 40 mg p.o. daily. 13. Synthroid 75 mcg p.o. daily. DIET: Regular diet. DISCHARGE ACTIVITY: As tolerated. DISCHARGE INSTRUCTIONS: If her condition changes, contact physician and/or return to the emergency department. Changes may include, but not limited to shortness of breath, increased fatigue, excessive bleeding, unexplained weight loss or gain, unimaginable pain, signs or symptoms of infection. PHYSICIAN FOLLOWUP: [facility] and home health. DISCHARGE DISPOSITION: Home with home health. Dictated by MALDONADO Robles for Anthony Kim MD Addendum: Patient seen and examined by myself. Agree with MALDONADO note. It reflects my assessment and plan. Patient is being discharged from hospital in stable condition. Will be seen by Orthopedic doctor as already scheduled. cc: MALDONADO Robles MD [facility]
== END 2019-07-13 11:59 | disposition home health service (06) | DRG 190 ==
LOC: P.ED 16:09 → SUATTDRO 20:02 → P.MEDSURG 20:02
PROVIDERS: ATTEND Internal Medicine